=== PATIENT | male | born 1965 | race Hispanic/Latino ===

== ENCOUNTER 2018-04-28 22:58 | Emergency (ER) | payer OTHER ==
[~2018-04-28] VITALS: Ht 170.2 cm; Wt 73.5 kg
[~2018-04-28 22:58] MED LIST: CIPRO500 MG PO; METRONIDAZOLE500 MG PO; NO MEDS
[2018-04-28] MEDS ORDERED: HYDROCODONE/APAP 10MG-325MG TAB PO ONE (23:15)
--- NOTE | 2018-04-28 23:54 | Diagnostic Imaging Report ---
SHOULDER LEFT COMPLETE HISTORY: Injury, pain. COMPARISON: None available. FINDINGS: Bones: No acute displaced fracture. Punctate calcification adjacent to the greater tuberosity, likely rotator cuff calcific tendinosis. Adequate internal and external rotation. Osseous alignment is within normal limits. Joints: Moderate degenerative changes of the acromioclavicular joint. Soft tissues: The soft tissues appear unremarkable. IMPRESSION: No acute radiographic abnormality. Signed by: DR. Elpidio Yang MD on 04/28/2018 11:50 PM
[2018-04-29] MEDS ORDERED: KETOROLAC TROMETHAMINE 60 MG/2 ML VIAL IM ONE (01:00)
[2018-04-29 01:28] VITALS: BP 135/81
== END 2018-04-29 01:43 | disposition home or self-care (01) ==
LOC: ER 22:58
DX: M25.512 Pain in left shoulder (principal); X50.1XXA Overexertion from prolonged static or awkward postures, initial encounter
CPT/HCPCS: 73030; 96372; 99283; J1885

== ENCOUNTER 2019-08-20 20:04 | Emergency (ER) | payer OTHER ==
[~2019-08-20] VITALS: Ht 170.2 cm; Wt 65.8 kg
--- OUTSIDE RECORDS SUMMARY | 2019-08-20 20:08 | XMS REPORT | Continuity of Care Document ---
Author Author [facility] t Organization [facility] Address 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 Medications Ordered Medication Name Filled Medication Name Start Date Stop Da te Current Medication? Ordering Clinician Indication Dosage Frequency Signature (SIG) Comments Components Source Ciprofloxacin Hcl (Cipro) 500 Mg Tablet Ciprofloxacin Hcl (C ipro) 500 Mg Tablet Yes 500 Every 12 Hours [facility] Ciprofloxacin Hcl (Cipro) 500 Mg Tablet Ciprofloxacin Hcl (C ipro) 500 Mg Tablet Yes 500 Every 12 Hours [facility] Metronidazole 500 Mg Tablet Metronidazole 500 Mg Tablet Yes 500 Three Times A Day [facility] Procedures This patient has no known procedures. Encounters Start Date/Time End Date/Time Encounter Type Admission Type [facility] Care Department Encounter ID Source 2018-04-28 22:58:00 2018-04-29 01:43:00 Departed Emergency Room 1 MARIA INES JOHN [facility] [id number] [facility] Results Test Description Test Time Test Comments Results Result Comments Source SHOULDER LEFT COMPLETE 2018-04-28 23:49:00 [facility] [address] [place], [place] [address] Patient Name: OANH MINER MR #: [id number] : 1965 Age/Sex: 52/M Req #: [id number] Adm Physician: Ordered by: MARIA INES JOHN MD Report #: [id number] Location: ER Room/Bed: Procedure: [id number] DX/SHOULDER LEFT COMPLETE Exam Date: 04/28/18 Exam Time: 2327 REPORT STATUS: Signed SHOULDER LEFT COMPLETE HISTORY: Injury, pain. COMPARISON: None available. FINDINGS: Bones: No acute displaced fracture. Punctate calcification adjacent to the greater tuberosity, likely rotator cuff calcific tendinosis. Adequate internal and external rotation. Osseous alignment is within normal limits. Joints: Moderate degenerative changes of the acromioclavicular joint. Soft tissues: The soft tissues appear unremarkable. IMPRESSION: No acute radiographic abnormality. Signed by: DR. Elpidio Red MD on 04/28/2018 11:50 PM Dictated By: ELPIDIO RED MD [id number] Transcribed By: KAROLINA on 04/28/18 0561 COPY TO: MARIA INES JOHN MD
[2019-08-20] MEDS ORDERED: KETOROLAC TROMETHAMINE 30 MG/ML VIAL IV STA (20:29)
[2019-08-20] MEDS ORDERED: ASPIRIN 81 MG CHEW TAB PO ONE (20:30)
--- NOTE | 2019-08-20 20:46 | Emergency Department Note ---
History of Present Illnes History of Present Illness Chief Complaint: Chest Pain History of Present Illness This is a 54 year old male presents with complaint of left-sided chest pain for the past 3 days that has been constant nature. States pain is worse with movement and breathing. Patient denies injury. Patient denies fever and cough. . Historian: Patient Arrival Mode: Car Onset (how long ago): day(s) (3) Location: left chest Quality: pain, aching Radiation: non-radiation Severity: severe Onset quality: sudden Duration (how long): day(s) (3) Timing of current episode: constant Progression: unchanged Chronicity: new Relieving factors: none Exacerbating factors: movement, other (inspiration) Associated symptoms: denies other symptoms Treatments prior to arrival: none Past Medical/Family History Physician Review I have reviewed the patient's past medical and family history. Any updates have been documented here. Past Medical History Recent Fever: No Clinical Suspicion of Infectio: No New/Unexplained Change in Ment: No Past Medical History: None Past Surgical History: Cholecysctectomy Other Surgery: LEFT ARM AND LEGS BILATERAL Social History Smoking Cessation: Current some day smoker Counseling Performed: No Alcohol Use: None Any Illegal Drug Use: No TB Exposure/Symptoms: No Physically hurt or threatened: No Family History Family history of heart diseas: No Other family history htn Other Last Tetanus: UTD Any Pre-Existing Lines (PICC,: No Is patient up to date on immun: No Last Flu: utd Last Pneumovax: na Review of Systems Review of Systems Constitutional: no symptoms EENTM: no symptoms Cardiovascular: as per HPI Respiratory: no symptoms Gastrointestinal: no symptoms Genitourinary: no symptoms Musculoskeletal: as per HPI Neurological: no symptoms Psychological: no symptoms Endocrine: no symptoms Hematological/Lymphatic: no symptoms Review of other systems All other systems reviewed and negative. Physical Exam Related Data Allergies: Coded Allergies: No Known Allergies (Verified , 08/14/14) Triage Vital Signs Vital Signs Date Time Temp Pulse Resp B/P (MAP) Pulse Ox O2 Delivery O2 Flow Rate FiO2 08/20/19 20:04 98.0 106 22 178/87 100 Vital signs reviewed: Yes Physical Exam CONSTITUTIONAL Constitutional: well-developed, well-nourished HENT HENT: normocephalic, atraumatic, oropharynx clear/moist, nose normal HENT L/R: left ext ear normal, right ext ear normal EYES Eyes: PERRL, conjunctivae normal NECK Neck: ROM normal PULMONARY Pulmonary: effort normal, breath sounds normal CARDIOVASCULAR Cardiovascular: regular rhythm, heart sounds normal, capillary refill normal, normal rate GASTROINTESTINAL Abdominal: soft, nontender, bowel sounds normal GENITOURINARY Genitourinary: exam deferred SKIN Skin: warm, dry MUSCULOSKELETAL Musculoskeletal: ROM normal, other (left anterior and lateral chest wall tender to palpation) NEUROLOGICAL Neurological: alert, oriented x 3, no gross motor or sensory deficits PSYCHOLOGICAL Psychological: mood/affect normal, judgement normal Results Laboratory Laboratory Laboratory Tests Test 08/20/19 20:21 White Blood Count 6.01 x10e3/uL (4.8-10.8) Red Blood Count 4.53 x10e6/uL (4.3-5.7) Hemoglobin 12.1 g/dL (14.0-18.0) Hematocrit 36.8 % (38.2-49.6) Mean Corpuscular Volume 81.2 fL (81-99) Mean Corpuscular Hemoglobin 26.7 pg (28-32) Mean Corpuscular Hemoglobin Concent 32.9 g/dL (31-35) Red Cell Distribution Width 14.5 % (11.7-14.4) Platelet Count 190 x10e3/uL (140-360) Neutrophils (%) (Auto) 50.0 % (38.7-80.0) Lymphocytes (%) (Auto) 33.3 % (18.0-39.1) Monocytes (%) (Auto) 12.5 % (4.4-11.3) Eosinophils (%) (Auto) 3.7 % (0.0-6.0) Basophils (%) (Auto) 0.2 % (0.0-1.0) Neutrophils # (Auto) 3.0 (2.1-6.9) Lymphocytes # (Auto) 2.0 (1.0-3.2) Monocytes # (Auto) 0.8 (0.2-0.8) Eosinophils # (Auto) 0.2 (0.0-0.4) Basophils # (Auto) 0.0 (0.0-0.1) Absolute Immature Granulocyte (auto 0.02 x10e3/uL (0-0.1) Prothrombin Time 14.9 seconds (11.9-14.5) Prothromb Time International Ratio 1.10 Activated Partial Thromboplast Time 31.9 seconds (23.8-35.5) D-Dimer Quantitative (PE/DVT) 413 ng/mL (0-400) Sodium Level 138 mmol/L (136-145) Potassium Level 3.8 mmol/L (3.5-5.1) Chloride Level 106 mmol/L (98-107) Carbon Dioxide Level 22 mmol/L (22-29) Anion Gap 13.8 mmol/L (8-16) Blood Urea Nitrogen 9 mg/dL (7-26) Creatinine 0.51 mg/dL (0.72-1.25) Estimat Glomerular Filtration Rate > 60 ML/MIN (60-) BUN/Creatinine Ratio 18 (6-25) Glucose Level 92 mg/dL (74-118) Calcium Level 9.1 mg/dL (8.4-10.2) Total Bilirubin 0.3 mg/dL (0.2-1.2) Aspartate Amino Transf (AST/SGOT) 23 IU/L (5-34) Alanine Aminotransferase (ALT/SGPT) 23 IU/L (0-55) Alkaline Phosphatase 187 IU/L (40-150) Creatine Kinase 30 IU/L (30-200) Creatine Kinase MB 1.40 ng/mL (0-5.0) Troponin I < 0.001 ng/mL (0-0.300) B-Type Natriuretic Peptide 129.6 pg/mL (0-100) Total Protein 7.1 g/dL (6.5-8.1) Albumin 3.2 g/dL (3.5-5.0) Globulin 3.9 g/dL (2.3-3.5) Albumin/Globulin Ratio 0.8 (0.8-2.0) Lab results reviewed: Yes Imaging Imaging results reviewed: Yes Impressions EXAMINATION: CHEST SINGLE (PORTABLE) COMPARISON: Chest x-ray 08/14/2014 INDICATION: ^chest pain ^[id number] ^2044 ^Y DISCUSSION: Frontal view of the chest obtained at 2004 hours. HEART AND MEDIASTINUM: The cardiomediastinal silhouette is unremarkable. LINES: None. LUNGS/PLEURA: The lungs are diffusely hyperinflated. No pneumonia or pulmonary edema. No pleural effusion or pneumothorax. Stable mild eventration of the right diaphragm. BONES AND SOFT TISSUES: No focal osseous lesion. The soft tissues are normal. IMPRESSION: Pulmonary hyperinflation suggestive of small airways disease. No infiltrates. Signed by: Dr. Heather Gutiérrez MD on 08/20/2019 9:[address] 1. No evidence for pulmonary embolus or aortic dissection.. 2. No pulmonary abnormalities. 3. Gynecomastia as described above. 4. Enlarged thyroid gland. Recommend further evaluation with thyroid ultrasound and thyroid function tests. Procedures 12 Lead ECG Interpretation Roll On Worker: Interpreted by ED physician Date: Aug 20, 2019 Time: 20:18 Rhythm: sinus tachycardia Rate: tachycardia BPM: 108 QRS axis: normal ST segments normal: Yes T waves normal: Yes Other findings: no other findings Clinical Impression: abnormal ECG (sinus tachycardia o/w normal) Critical Care Time Subsequent provider I assumed direction of critical care for this patient from another provider of my specialty. Assessment & Plan Assessment & Plan Final Impression: (1) Chest wall pain Assessment & Plan Patient with left-sided chest pain that is reproducible with movement and palpation and inspiration. CBC, CMP, cardiac enzymes, d-dimer, EKG, chest x-ray, ordered to eval for myocardial infarction, like slight abnormality, pneumonia, pulmonary embolus. Toradol 30 mg IV ordered. Patient has positive d-dimer CT chest PE protocol ordered. Patient's CT chest negative for pulmonary embolus and pneumonia. Patient will be discharged home on naproxen and Flexeril Depart Disposition: HOME, SELF-CARE Last Vital Signs Date Time Temp Pulse Resp B/P (MAP) Pulse Ox O2 Delivery O2 Flow Rate FiO2 08/20/19 20:31 110 22 176/77 100 08/20/19 20:04 98.0 Home Meds Reported Medications Metronidazole (METRONIDAZOLE) 500 Mg Tablet, 500 MG PO TID, #30 TAB 03/05/16 Ciprofloxacin Hcl (CIPRO) 500 Mg Tablet, 500 MG PO Q12H, #20 TAB 03/05/16 Ciprofloxacin Hcl (CIPRO) 500 Mg Tablet, 500 MG PO Q12H, #20 TAB 03/05/16 [No Meds] No Conflict Check 10/14/14 Medications in the ED Aspirin 81 mg PRN ONCE PO Last administered on 08/20/19at 20:32; Admin Dose 81 MG; Start 08/20/19 at 20:30; Stop 08/20/19 at 20:31; Status UNV Ketorolac Tromethamine 30 mg ONCE STAT IV ; Start 08/20/19 at 20:29; Stop 08/20/19 at 20:30; Status UNV JACKIE THOMAS MD Aug 20, 2019 20:46
[2019-08-20 20:49] LABS: BASOPHILS % 0.2 % (0.0-1.0); EOSINOPHILS # (AUTO) 0.2 (0.0-0.4); EOSINOPHILS % 3.7 % (0.0-6.0); HEMATOCRIT 36.8 % (38.2-49.6); HEMOGLOBIN 12.1 g/dL (14.0-18.0); LYMPHOCYTES % 33.3 % (18.0-39.1); MEAN CORPUSCULAR HEMOGLOBIN 26.7 pg (28-32); MEAN CORPUSCULAR HGB CONC 32.9 g/dL (31-35); MEAN CORPUSCULAR VOLUME 81.2 fL (81-99); MONOCYTES # (AUTO) 0.8 (0.2-0.8); MONOCYTES % 12.5 % (4.4-11.3); PLATELET COUNT 190 x10e3/uL (140-360); RED BLOOD COUNT 4.53 x10e6/uL (4.3-5.7); RED CELL DISTRIBUTION WIDTH 14.5 % (11.7-14.4)
[2019-08-20 20:52] LABS: INR 1.1; PARTIAL THROMBOPLASTIN TIME 31.9 seconds (23.8-35.5); PROTHROMBIN TIME 14.9 seconds (11.9-14.5)
[2019-08-20 21:01] LABS: ALANINE AMINOTRANSFERASE 23 IU/L (0-55); ALBUMIN 3.2 g/dL (3.5-5.0); ALBUMIN/GLOBULIN RATIO 0.8 (0.8-2.0); ALKALINE PHOSPHATASE 187 IU/L (40-150); ANION GAP 13.8 mmol/L (8-16); BLOOD UREA NITROGEN 9 mg/dL (7-26); BUN/CREATININE RATIO 18 (6-25); CALCIUM 9.1 mg/dL (8.4-10.2); CARBON DIOXIDE 22 mmol/L (22-29); CHLORIDE 106 mmol/L (98-107); CREATINE KINASE 30 IU/L (30-200); CREATININE, SERUM 0.51 mg/dL (0.72-1.25); EST GLOMERULAR FILTRATION RATE > 60 ML/MIN (60-); GLUCOSE 92 mg/dL (74-118); POTASSIUM 3.8 mmol/L (3.5-5.1); SODIUM 138 mmol/L (136-145)
--- NOTE | 2019-08-20 21:15 | Diagnostic Imaging Report ---
EXAMINATION: CHEST SINGLE (PORTABLE) COMPARISON: Chest x-ray 08/14/2014 INDICATION: ^chest pain ^[id number] ^2044 ^Y DISCUSSION: Frontal view of the chest obtained at 2004 hours. HEART AND MEDIASTINUM: The cardiomediastinal silhouette is unremarkable. LINES: None. LUNGS/PLEURA: The lungs are diffusely hyperinflated. No pneumonia or pulmonary edema. No pleural effusion or pneumothorax. Stable mild eventration of the right diaphragm. BONES AND SOFT TISSUES: No focal osseous lesion. The soft tissues are normal. IMPRESSION: Pulmonary hyperinflation suggestive of small airways disease. No infiltrates. Signed by: Dr. Heather Gutiérrez MD on 08/20/2019 9:12 PM
[2019-08-20] MEDS ORDERED: HYDROCODONE/APAP 7.5MG-325MG 1 EA TAB PO ONE (21:30)
[2019-08-20] MEDS ORDERED: SODIUM CHLORIDE 0.9% 50ML 50 ML ONE (21:55)
[2019-08-20] MEDS ORDERED: IOPAMIDOL 370 MG/ML 200 ML INFUS..BTL INJ ONE (21:55)
--- NOTE | 2019-08-20 23:15 | Diagnostic Imaging Report ---
CT chest pulmonary embolism protocol CPT code: 54625 INDICATION: Chest pain ^pe protocol ^Y TECHNIQUE: Thin collimation axial images obtained through the level of the pulmonary arteries with additional imaging through the chest following the uneventful administration of 100 cc of low osmolar, nonionic intravenous contrast. Images reconstructed into coronal and sagittal MIPs for complete evaluation of the tortuous and overlapping pulmonary vascular structures and to reduce patient radiation dose. RADIATION DOSE: Total DLP: 530.83 mGy*cm Estimated effective dose: (DLP x 0.015 x size factor) mSv CTDIvol has been reviewed. It is below the limits set by the Radiation Protocol Committee (RPC). Dose reduction techniques used: Automated exposure control, adjustment of the mAs and/or kVp according to patient size, standardized low-dose protocol, and/or iterative reconstruction technique. COMPARISON: CTA chest 09/25/2011. FINDINGS: Pulmonary artery: No filling defects are appreciated within the main, left, right, lobar or visualized segmental pulmonary arteries to suggest embolism. Aorta: The thoracic aorta is not aneurysmal. No evidence for dissection. Lymph nodes: No enlarged axillary or supraclavicular lymph nodes. A right hilar lymph node measures 8 mm. Increased number of lymph nodes in the AP window measure up to 7 mm. No enlarged subcarinal lymph nodes Thyroid: Diffusely enlarged. No discrete nodules. Mediastinum: The heart is normal in size. No pericardial effusion. The esophagus is normal. Lungs: Right Lung: Well-inflated and normal. No nodules Left Lung: Well-inflated and normal. No nodules. Pleura: No pleural effusion or pleural-based mass. Abdomen: Visualized portions are normal uric the gallbladder is absent. Bones: Mild degenerative changes of the spine. No focal osseous lesions. Soft tissues: Gynecomastia. Resolved right gynecomastia. IMPRESSION: 1. No evidence for pulmonary embolus or aortic dissection.. 2. No pulmonary abnormalities. 3. Gynecomastia as described above. 4. Enlarged thyroid gland. Recommend further evaluation with thyroid ultrasound and thyroid function tests. Signed by: Dr. Heather Gutiérrez MD on 08/20/2019 11:12 PM
[2019-08-20 23:23] VITALS: BP 151/61
== END 2019-08-20 23:37 | disposition home or self-care (01) ==
LOC: ER 20:04
DX: R07.89 Other chest pain (principal); F17.210 Nicotine dependence, cigarettes, uncomplicated
CPT/HCPCS: 36415; 71045; 71260; 80053; 82550; 82553; 83880; 84484; 85025; 85379; 85610; 85730; 99284; J1885; Q9967; 93005

== ENCOUNTER 2020-03-07 17:16 | Inpatient (IN) | payer OTHER ==
[~2020-03-07] VITALS: Ht 170.2 cm; Wt 65.8 kg
[2020-03-07] MEDS ORDERED: SODIUM CHLORIDE 0.9% 1000ML 1,000 ML IV SCH (17:45)
[2020-03-07] MEDS ORDERED: FAMOTIDINE 20 MG/2 ML VIAL IV STA (17:45)
[2020-03-07] MEDS ORDERED: ONDANSETRON HCL INJ 2MG/ML 2ML 2 MG/ML VIAL IV STA (17:45)
[2020-03-07 17:58] LABS: BASOPHILS % 0.3 % (0.0-1.0); EOSINOPHILS # (AUTO) 0.2 (0.0-0.4); EOSINOPHILS % 1.9 % (0.0-6.0); HEMATOCRIT 37.9 % (38.2-49.6); HEMOGLOBIN 12.4 g/dL (14.0-18.0); LYMPHOCYTES # (AUTO) 1.9 (1.0-3.2); MEAN CORPUSCULAR HEMOGLOBIN 26.4 pg (28-32); MEAN CORPUSCULAR HGB CONC 32.7 g/dL (31-35); MEAN CORPUSCULAR VOLUME 80.8 fL (81-99); MONOCYTES % 9.3 % (4.4-11.3); NEUTROPHILS % 69.2 % (38.7-80.0); PLATELET COUNT 197 x10e3/uL (140-360); RED BLOOD COUNT 4.69 x10e6/uL (4.3-5.7); RED CELL DISTRIBUTION WIDTH 14.4 % (11.7-14.4)
[2020-03-07] MEDS: MORPHINE SULFATE INJ 4 MG/ML INJ 1ML IV PRN (18:09)
[2020-03-07] MEDS ORDERED: SODIUM CHLORIDE 0.9% 50ML 50 ML ONE ×3 (18:15→19:33)
[2020-03-07 18:19] LABS: ALANINE AMINOTRANSFERASE 15 IU/L (0-55); ALBUMIN 3.5 g/dL (3.5-5.0); ALBUMIN/GLOBULIN RATIO 0.8 (0.8-2.0); ALKALINE PHOSPHATASE 190 IU/L (40-150); ANION GAP 15.8 mmol/L (8-16); BLOOD UREA NITROGEN 9 mg/dL (7-26); BUN/CREATININE RATIO 17 (6-25); CALCIUM 8.9 mg/dL (8.4-10.2); CARBON DIOXIDE 21 mmol/L (22-29); CHLORIDE 105 mmol/L (98-107); CREATINE KINASE 24 IU/L (30-200); CREATININE, SERUM 0.53 mg/dL (0.72-1.25); EST GLOMERULAR FILTRATION RATE > 60 ML/MIN (60-); GLUCOSE 114 mg/dL (74-118); POTASSIUM 3.8 mmol/L (3.5-5.1); SODIUM 138 mmol/L (136-145)
[2020-03-07] MEDS ORDERED: IOPAMIDOL 370 MG/ML 200 ML INFUS..BTL INJ ONE ×2 (18:56→19:34)
[2020-03-07 20:12] LABS: CLARITY,URINE CLEAR (CLEAR); COLOR,URINE YELLOW (YELLOW); KETONES,URINE NEGATIVE (NEGATIVE); LEUKOCYTE ESTERASE ,URINE TRACE (NEGATIVE); NITRITE,URINE NEGATIVE (NEGATIVE); PROTEIN,URINE DIPSTICK NEGATIVE (NEGATIVE); URINE UROBILINOGEN 0.2 mg/dL (0.2 - 1)
[2020-03-07 20:18] LABS: BACTERIA,URINE FEW /HPF; EPITHELIAL CELLS,URINE RARE /LPF; RBC,URINE 0-5 /HPF (0-5)
[2020-03-07] MEDS ORDERED: MORPHINE SULFATE INJ 2 MG/ML SYR IV STA (21:03)
[2020-03-07] MEDS ORDERED: MORPHINE SULFATE INJ 2 MG/ML SYR ONE (21:07)
[2020-03-07] MEDS ORDERED: ONDANSETRON HCL INJ 2MG/ML 2ML 2 MG/ML VIAL IV PRN (21:45)
[2020-03-07] MEDS ORDERED: HYDRALAZINE HCL 20 MG/ML VIAL IV PRN (22:45)
[2020-03-07] MEDS ORDERED: ACETAMINOPHEN 325 MG TAB PO PRN (22:45)
[2020-03-08] VITALS (9 sets, daily range): BP systolic 121–160; BP diastolic 55–80
[2020-03-08] MEDS: SODIUM CHLORIDE 0.9% 1000ML 1,000 ML IV SCH ×4 (00:53→19:59)
[2020-03-08] MEDS: PIPER-TAZ 3.375 GM 50 ML IV SCH ×6 (00:54→23:19)
[2020-03-08] MEDS: KETOROLAC TROMETHAMINE 30 MG/ML VIAL IV PRN ×3 (00:54→19:59)
[2020-03-08] MEDS: MORPHINE SULFATE INJ 4 MG/ML INJ 1ML IV PRN ×5 (03:22→21:23)
[2020-03-08 06:13] LABS: BASOPHILS % 0.2 % (0.0-1.0); EOSINOPHILS # (AUTO) 0.2 (0.0-0.4); EOSINOPHILS % 3.5 % (0.0-6.0); HEMATOCRIT 33.4 % (38.2-49.6); HEMOGLOBIN 10.7 g/dL (14.0-18.0); LYMPHOCYTES # (AUTO) 1.8 (1.0-3.2); LYMPHOCYTES % 29.1 % (18.0-39.1); MEAN CORPUSCULAR HEMOGLOBIN 26.6 pg (28-32); MEAN CORPUSCULAR VOLUME 83.1 fL (81-99); MONOCYTES # (AUTO) 0.8 (0.2-0.8); MONOCYTES % 11.9 % (4.4-11.3); NEUTROPHILS # (AUTO) 3.5 (2.1-6.9); PLATELET COUNT 165 x10e3/uL (140-360); RED BLOOD COUNT 4.02 x10e6/uL (4.3-5.7); RED CELL DISTRIBUTION WIDTH 14.4 % (11.7-14.4)
[2020-03-08 06:46] LABS: ALANINE AMINOTRANSFERASE 17 IU/L (0-55); ALBUMIN 2.8 g/dL (3.5-5.0); ALBUMIN/GLOBULIN RATIO 0.8 (0.8-2.0); ALKALINE PHOSPHATASE 149 IU/L (40-150); ANION GAP 11.8 mmol/L (8-16); BLOOD UREA NITROGEN 12 mg/dL (7-26); BUN/CREATININE RATIO 27 (6-25); CALCIUM 8.4 mg/dL (8.4-10.2); CARBON DIOXIDE 24 mmol/L (22-29); CHLORIDE 106 mmol/L (98-107); CREATININE, SERUM 0.45 mg/dL (0.72-1.25); EST GLOMERULAR FILTRATION RATE > 60 ML/MIN (60-); GLUCOSE 90 mg/dL (74-118); MAGNESIUM 1.7 MG/DL (1.3-2.1); POTASSIUM 3.8 mmol/L (3.5-5.1); SODIUM 138 mmol/L (136-145)
[2020-03-08] MEDS: FAMOTIDINE 20 MG/2 ML VIAL IV SCH ×2 (07:45→17:04)
[2020-03-09] VITALS (8 sets, daily range): BP systolic 136–159; BP diastolic 67–83
[2020-03-09] MEDS: MORPHINE SULFATE INJ 4 MG/ML INJ 1ML IV PRN ×5 (01:21→20:20)
[2020-03-09] MEDS: PIPER-TAZ 3.375 GM 50 ML IV SCH ×3 (05:10→18:03)
[2020-03-09] MEDS: SODIUM CHLORIDE 0.9% 1000ML 1,000 ML IV SCH ×3 (05:10→20:33)
[2020-03-09 06:10] LABS: BASOPHILS % 0.2 % (0.0-1.0); EOSINOPHILS # (AUTO) 0.3 (0.0-0.4); EOSINOPHILS % 6.4 % (0.0-6.0); HEMATOCRIT 31.7 % (38.2-49.6); HEMOGLOBIN 10.2 g/dL (14.0-18.0); LYMPHOCYTES # (AUTO) 1.4 (1.0-3.2); LYMPHOCYTES % 34.1 % (18.0-39.1); MEAN CORPUSCULAR HEMOGLOBIN 26.9 pg (28-32); MEAN CORPUSCULAR HGB CONC 32.2 g/dL (31-35); MEAN CORPUSCULAR VOLUME 83.6 fL (81-99); MONOCYTES # (AUTO) 0.5 (0.2-0.8); NEUTROPHILS % 48.3 % (38.7-80.0); PLATELET COUNT 134 x10e3/uL (140-360); RED BLOOD COUNT 3.79 x10e6/uL (4.3-5.7); RED CELL DISTRIBUTION WIDTH 14.6 % (11.7-14.4)
[2020-03-09 06:25] LABS: ANION GAP 10.9 mmol/L (8-16); BLOOD UREA NITROGEN 7 mg/dL (7-26); BUN/CREATININE RATIO 17 (6-25); CALCIUM 8.3 mg/dL (8.4-10.2); CARBON DIOXIDE 23 mmol/L (22-29); CHLORIDE 111 mmol/L (98-107); CREATININE, SERUM 0.41 mg/dL (0.72-1.25); EST GLOMERULAR FILTRATION RATE > 60 ML/MIN (60-); GLUCOSE 86 mg/dL (74-118); POTASSIUM 3.9 mmol/L (3.5-5.1); SODIUM 141 mmol/L (136-145)
[2020-03-09] MEDS: FAMOTIDINE 20 MG/2 ML VIAL IV SCH ×2 (09:22→17:34)
[2020-03-09] MEDS ORDERED: LORAZEPAM 0.5 MG TAB PO PRN (13:30)
[2020-03-10] VITALS: BP 137/94
[2020-03-10] MEDS: MORPHINE SULFATE INJ 4 MG/ML INJ 1ML IV PRN ×3 (00:17→09:00)
[2020-03-10 04:00] VITALS: BP 130/64
[2020-03-10] MEDS: SODIUM CHLORIDE 0.9% 1000ML 1,000 ML IV SCH (04:12)
[2020-03-10] MEDS: PIPER-TAZ 3.375 GM 50 ML IV SCH ×2 (05:45)
[2020-03-10 07:25] VITALS: BP 153/87
[2020-03-10 07:45] VITALS: BP 153/87
[2020-03-10] MEDS: FAMOTIDINE 20 MG/2 ML VIAL IV SCH (08:48)
[2020-03-10] MEDS ORDERED: BISACODYL 5 MG TAB EC PO PRN (10:30)
[2020-03-10] MEDS ORDERED: SENNA-S TABLET PO SCH (10:30)
[2020-03-10] MEDS ORDERED: MAGNESIUM HYDROXIDE 30 ML UDC PO PRN (10:30)
[2020-03-10] MEDS ORDERED: ALPRAZOLAM 0.25 MG TAB PO PRN (10:30)
[2020-03-10] MEDS ORDERED: METOPROLOL TARTRATE INJ 1 MG/ML VIAL IV PRN (10:30)
[2020-03-10] MEDS ORDERED: METOPROLOL TARTRATE 25 MG TAB PO SCH (10:30)
[2020-03-10] MEDS ORDERED: HYDROCODONE/APAP 10MG-325MG TAB PO PRN (10:30)
[2020-03-10 11:02] VITALS: BP 132/91
== END 2020-03-10 11:31 | disposition left against medical advice (07) | DRG 699 ==
LOC: ER 17:24 → ERHOLD 21:53 → MED/SURG3 03-08 00:14 → OBSVTOIN 03-08 10:08
PROVIDERS: ADMIT Internal Medicine; ATTEND Internal Medicine
DX: N32.1 Vesicointestinal fistula (principal); K57.32 Diverticulitis of large intestine without perforation or abscess without bleeding; N39.0 Urinary tract infection, site not specified; Z20.828 Contact with and (suspected) exposure to other viral communicable diseases; N50.0 Atrophy of testis; I48.0 Paroxysmal atrial fibrillation; R39.89 Other symptoms and signs involving the genitourinary system
CPT/HCPCS: 36415; 71045; 74177; 80048; 80053; 81001; 82550; 82553; 83690; 83735; 84484; 85025; 87086; 87186; 93005; 99284; G0378; J1885; J2270; J2405; J2543; J7030; Q9967; U0002

== ENCOUNTER 2020-08-07 20:47 | Inpatient (IN) | payer SELFPAY ==
[~2020-08-07] VITALS: Ht 170.2 cm; Wt 65.8 kg
[2020-08-07] MEDS ORDERED: DILTIAZEM HCL VIAL 5 ML ONE (21:30)
[2020-08-07] MEDS ORDERED: DILTIAZEM HCL 125 ML IV STA (21:30)
[2020-08-07 21:34] LABS: BASOPHILS % 0.4 % (0.0-1.0); EOSINOPHILS # (AUTO) 0.2 (0.0-0.4); EOSINOPHILS % 3.9 % (0.0-6.0); HEMATOCRIT 31.5 % (38.2-49.6); HEMOGLOBIN 10.1 g/dL (14.0-18.0); LYMPHOCYTES # (AUTO) 1.6 (1.0-3.2); LYMPHOCYTES % 29.1 % (18.0-39.1); MEAN CORPUSCULAR HEMOGLOBIN 27.3 pg (28-32); MEAN CORPUSCULAR HGB CONC 32.1 g/dL (31-35); MEAN CORPUSCULAR VOLUME 85.1 fL (81-99); MONOCYTES # (AUTO) 0.6 (0.2-0.8); MONOCYTES % 11.4 % (4.4-11.3); NEUTROPHILS # (AUTO) 3.1 (2.1-6.9); PLATELET COUNT 134 x10e3/uL (140-360); RED CELL DISTRIBUTION WIDTH 17.2 % (11.7-14.4)
[2020-08-07] MEDS ORDERED: SODIUM CHLORIDE 0.9% 100 ML ONE (21:47)
[2020-08-07] MEDS ORDERED: DILTIAZEM HCL IV 5MG/ML 25 ML VIAL ONE (21:48)
[2020-08-07 21:55] LABS: ALANINE AMINOTRANSFERASE 24 IU/L (0-55); ALBUMIN 3.1 g/dL (3.5-5.0); ALBUMIN/GLOBULIN RATIO 0.8 (0.8-2.0); ALKALINE PHOSPHATASE 214 IU/L (40-150); ANION GAP 12.9 mmol/L (8-16); BLOOD UREA NITROGEN 11 mg/dL (7-26); BUN/CREATININE RATIO 20 (6-25); CALCIUM 8.1 mg/dL (8.4-10.2); CARBON DIOXIDE 22 mmol/L (22-29); CHLORIDE 108 mmol/L (98-107); CREATINE KINASE 46 IU/L (30-200); CREATININE, SERUM 0.56 mg/dL (0.72-1.25); EST GLOMERULAR FILTRATION RATE > 60 ML/MIN (60-); GLUCOSE 110 mg/dL (74-118); POTASSIUM 3.9 mmol/L (3.5-5.1); SODIUM 139 mmol/L (136-145)
[2020-08-07] MEDS ORDERED: SODIUM CHLORIDE 0.9% 50ML 50 ML ONE (22:26)
[2020-08-07] MEDS ORDERED: IOPAMIDOL 370 MG/ML 200 ML INFUS..BTL INJ ONE (22:26)
[2020-08-07] MEDS ORDERED: FUROSEMIDE INJ 10 MG/ML 4 ML VIAL IV ONE (22:45)
[2020-08-07] MEDS ORDERED: ASPIRIN 81 MG CHEW TAB PO ONE (23:00)
[2020-08-07] MEDS ORDERED: AMIODARONE HCL 150MG 100 ML ONE (23:33)
[2020-08-07] MEDS ORDERED: AMIODARONE 900MG 500 ML IV ONE (23:33)
[2020-08-07] MEDS ORDERED: AMIODARONE HCL 150MG 100 ML IV ONE (23:45)
[2020-08-08] VITALS (30 sets, daily range): BP systolic 95–123; BP diastolic 66–99
[2020-08-08] MEDS ORDERED: VANCOMYCIN 1GM/NS 250 ML 250 ML IV ONE (00:30)
[2020-08-08] MEDS ORDERED: CEFEPIME HCL 1 GM VIAL IV SCH (00:30)
[2020-08-08] MEDS: CEFEPIME HCL 1GM 1 GM in SODIUM CHLORIDE 0.9% 50ML 50 ML IV SCH ×2 (01:45→13:13)
[2020-08-08] MEDS: SODIUM CHLORIDE 0.9% 1000ML 1,970 ML IV SCH ×2 (01:55→01:56)
[2020-08-08] MEDS: AMIODARONE 900MG 500 ML IV SCH (03:00)
[2020-08-08] MEDS ORDERED: AMIODARONE HCL 360MG 200 ML IV SCH ×2 (06:00)
[2020-08-08 06:25] LABS: BASOPHILS % 0.2 % (0.0-1.0); EOSINOPHILS # (AUTO) 0.1 (0.0-0.4); EOSINOPHILS % 2.2 % (0.0-6.0); HEMATOCRIT 28.6 % (38.2-49.6); HEMOGLOBIN 9.2 g/dL (14.0-18.0); LYMPHOCYTES # (AUTO) 1.3 (1.0-3.2); LYMPHOCYTES % 24.5 % (18.0-39.1); MEAN CORPUSCULAR HEMOGLOBIN 26.9 pg (28-32); MEAN CORPUSCULAR HGB CONC 32.2 g/dL (31-35); MEAN CORPUSCULAR VOLUME 83.6 fL (81-99); MONOCYTES # (AUTO) 0.8 (0.2-0.8); MONOCYTES % 14.6 % (4.4-11.3); NEUTROPHILS # (AUTO) 3.1 (2.1-6.9); NEUTROPHILS % 58.1 % (38.7-80.0); PLATELET COUNT 130 x10e3/uL (140-360); RED BLOOD COUNT 3.42 x10e6/uL (4.3-5.7); RED CELL DISTRIBUTION WIDTH 17.2 % (11.7-14.4)
[2020-08-08 06:42] LABS: CREATINE KINASE MB 0.7 ng/mL (0-5.0)
[2020-08-08 06:58] LABS: ALANINE AMINOTRANSFERASE 22 IU/L (0-55); ALBUMIN 2.8 g/dL (3.5-5.0); ALBUMIN/GLOBULIN RATIO 0.8 (0.8-2.0); ALKALINE PHOSPHATASE 189 IU/L (40-150); ANION GAP 13.5 mmol/L (8-16); BLOOD UREA NITROGEN 11 mg/dL (7-26); BUN/CREATININE RATIO 22 (6-25); CALCIUM 7.7 mg/dL (8.4-10.2); CARBON DIOXIDE 19 mmol/L (22-29); CHLORIDE 110 mmol/L (98-107); CREATININE, SERUM 0.49 mg/dL (0.72-1.25); EST GLOMERULAR FILTRATION RATE > 60 ML/MIN (60-); GLUCOSE 111 mg/dL (74-118); POTASSIUM 3.5 mmol/L (3.5-5.1); SODIUM 139 mmol/L (136-145)
[2020-08-08] MEDS: ONDANSETRON HCL INJ 2MG/ML 2ML 2 MG/ML VIAL IV PRN (08:30)
[2020-08-08] MEDS ORDERED: APIXABAN 5 MG TABLET PO SCH (09:00)
[2020-08-08] MEDS ORDERED: LORAZEPAM 0.5 MG TAB PO ONE ×2 (10:50→13:20)
[2020-08-08] MEDS ORDERED: DIGOXIN INJ 0.25 MG/ML 2 ML AMP IV ONE (12:45)
[2020-08-08 12:50] LABS: CREATINE KINASE MB 0.8 ng/mL (0-5.0)
[2020-08-08] MEDS: METOPROLOL TARTRATE 25 MG TAB PO SCH ×2 (13:36→17:18)
[2020-08-08 14:58] LABS: RBC,BODY FLUID 3000 cells/uL; WBC,BODY FLUID 684 cells/uL
[2020-08-08 14:59] LABS: BODY FLUID APPEARANCE SL.CLOUDY; BODY FLUID COLOR YELLOW
[2020-08-08 15:00] LABS: BODY FLUID TYPE PLEURAL
[2020-08-08 17:19] LABS: LYMPHOCYTES,BODY FLUID 13 %; MONO/MACROPHG,BODY FLUID 22 %; NEUTROPHILS,BODY FLUID 17 %
[2020-08-08 17:25] LABS: OTHER CELLS,BODY FLUID 48 %
[2020-08-08 20:35] LABS: CREATINE KINASE MB 0.7 ng/mL (0-5.0)
[2020-08-08] MEDS: ZOLPIDEM TARTRATE 5 MG TAB PO SCH (21:58)
[2020-08-09] VITALS (23 sets, daily range): BP systolic 98–133; BP diastolic 60–95
[2020-08-09] MEDS: METOPROLOL TARTRATE 25 MG TAB PO SCH ×4 (00:45→18:00)
[2020-08-09] MEDS: CEFEPIME HCL 1GM 1 GM in SODIUM CHLORIDE 0.9% 50ML 50 ML IV SCH ×2 (01:05→13:51)
[2020-08-09] MEDS: AMIODARONE 900MG 500 ML IV SCH (03:00)
[2020-08-09 04:49] LABS: BASOPHILS % 0.1 % (0.0-1.0); HEMATOCRIT 33.6 % (38.2-49.6); HEMOGLOBIN 10.7 g/dL (14.0-18.0); LYMPHOCYTES # (AUTO) 1.2 (1.0-3.2); LYMPHOCYTES % 12.6 % (18.0-39.1); MEAN CORPUSCULAR HGB CONC 31.8 g/dL (31-35); MEAN CORPUSCULAR VOLUME 84.6 fL (81-99); MONOCYTES # (AUTO) 1.3 (0.2-0.8); NEUTROPHILS # (AUTO) 7.3 (2.1-6.9); NEUTROPHILS % 73.6 % (38.7-80.0); PLATELET COUNT 140 x10e3/uL (140-360); RED BLOOD COUNT 3.97 x10e6/uL (4.3-5.7); RED CELL DISTRIBUTION WIDTH 17.2 % (11.7-14.4)
[2020-08-09 05:17] LABS: ANION GAP 19.7 mmol/L (8-16); BLOOD UREA NITROGEN 18 mg/dL (7-26); BUN/CREATININE RATIO 29 (6-25); CALCIUM 7.7 mg/dL (8.4-10.2); CARBON DIOXIDE 14 mmol/L (22-29); CHLORIDE 105 mmol/L (98-107); CREATININE, SERUM 0.62 mg/dL (0.72-1.25); EST GLOMERULAR FILTRATION RATE > 60 ML/MIN (60-); GLUCOSE 82 mg/dL (74-118); POTASSIUM 4.7 mmol/L (3.5-5.1); SODIUM 134 mmol/L (136-145)
[2020-08-09] MEDS ORDERED: DIGOXIN INJ 0.25 MG/ML 2 ML AMP IV ONE (10:00)
[2020-08-09] MEDS: AMIODARONE HCL 200 MG TAB PO SCH ×2 (10:31→17:01)
[2020-08-09] MEDS: APIXABAN 5 MG TABLET PO SCH (17:01)
[2020-08-09] MEDS: ZOLPIDEM TARTRATE 5 MG TAB PO SCH (21:54)
[2020-08-10] VITALS (8 sets, daily range): BP systolic 105–120; BP diastolic 53–91
[2020-08-10] MEDS ORDERED: SODIUM CHLORIDE 0.9% 250ML 250 ML ONE (00:45)
[2020-08-10] MEDS: CEFEPIME HCL 1GM 1 GM in SODIUM CHLORIDE 0.9% 50ML 50 ML IV SCH ×2 (00:56→13:38)
[2020-08-10] MEDS: APIXABAN 5 MG TABLET PO SCH ×2 (05:28→17:40)
[2020-08-10] MEDS: METOPROLOL TARTRATE 25 MG TAB PO SCH ×4 (05:34→17:37)
[2020-08-10] MEDS: AMIODARONE HCL 200 MG TAB PO SCH ×2 (09:29→17:40)
[2020-08-10] MEDS: ONDANSETRON HCL INJ 2MG/ML 2ML 2 MG/ML VIAL IV PRN (11:39)
[2020-08-10] MEDS: ZOLPIDEM TARTRATE 5 MG TAB PO SCH (21:09)
[2020-08-11] VITALS: BP 111/69
[2020-08-11] MEDS: METOPROLOL TARTRATE 25 MG TAB PO SCH ×4 (00:08→17:03)
[2020-08-11] MEDS: CEFEPIME HCL 1GM 1 GM in SODIUM CHLORIDE 0.9% 50ML 50 ML IV SCH ×2 (01:00→12:12)
[2020-08-11 04:00] VITALS: BP 111/64
[2020-08-11] MEDS: APIXABAN 5 MG TABLET PO SCH ×2 (04:57→17:03)
[2020-08-11 05:33] LABS: ANION GAP 10.7 mmol/L (8-16); BLOOD UREA NITROGEN 18 mg/dL (7-26); BUN/CREATININE RATIO 39 (6-25); CALCIUM 7.2 mg/dL (8.4-10.2); CARBON DIOXIDE 19 mmol/L (22-29); CHLORIDE 110 mmol/L (98-107); CREATININE, SERUM 0.46 mg/dL (0.72-1.25); EST GLOMERULAR FILTRATION RATE > 60 ML/MIN (60-); GLUCOSE 100 mg/dL (74-118); POTASSIUM 3.7 mmol/L (3.5-5.1); SODIUM 136 mmol/L (136-145)
[2020-08-11 05:49] LABS: MAGNESIUM 1.9 MG/DL (1.3-2.1); PHOSPHORUS 1.9 MG/DL (2.3-4.7)
[2020-08-11] MEDS: FAMOTIDINE 20 MG TAB PO SCH ×2 (07:39→17:03)
[2020-08-11 08:13] VITALS: BP 102/62
[2020-08-11 08:15] VITALS: BP 102/62
[2020-08-11] MEDS: AMIODARONE HCL 200 MG TAB PO SCH ×2 (08:28→17:03)
[2020-08-11 12:47] VITALS: BP 111/70
[2020-08-11] MEDS: FUROSEMIDE INJ 10 MG/ML 4 ML VIAL IV SCH ×2 (13:51→17:03)
[2020-08-11 15:57] LABS: BILIRUBIN,DIRECT 1.7 mg/dL (0.0-0.5)
[2020-08-11 16:52] LABS: ALBUMIN 2.7 g/dL (3.5-5.0)
[2020-08-11 16:59] VITALS: BP 98/67
[2020-08-11] MEDS ORDERED: AMIODARONE HCL200 MG PO (17:22)
[2020-08-11] MEDS ORDERED: LASIX40 MG PO (17:22)
[2020-08-11] MEDS ORDERED: LOPRESSOR25 MG PO (17:22)
[2020-08-11] MEDS ORDERED: ELIQUIS5 MG PO (17:22)
== END 2020-08-11 18:20 | disposition home or self-care (01) | DRG 308 ==
LOC: ER 21:02 → ERHOLD 23:01 → ICU 08-08 00:14 → MED/SURG 08-09 23:20
PROVIDERS: ADMIT Internal Medicine; ATTEND Internal Medicine
PROC: 0W993ZZ Drainage of Right Pleural Cavity, Percutaneous Approach (ICD-10-PCS; principal; 2020-08-08)
DX: I48.91 Unspecified atrial fibrillation (principal); I50.23 Acute on chronic systolic (congestive) heart failure; J90 Pleural effusion, not elsewhere classified; R64 Cachexia; N32.1 Vesicointestinal fistula; D69.6 Thrombocytopenia, unspecified; R59.1 Generalized enlarged lymph nodes; Z90.49 Acquired absence of other specified parts of digestive tract; Z87.891 Personal history of nicotine dependence; E88.09 Other disorders of plasma-protein metabolism, not elsewhere classified; R63.4 Abnormal weight loss; Z20.822 Contact with and (suspected) exposure to COVID-19; R74.02 Elevation of levels of lactic acid dehydrogenase [LDH]; Z68.22 Body mass index [BMI] 22.0-22.9, adult
CPT/HCPCS: 32555; 36415; 71045; 71260; 74177; 80048; 80053; 80076; 82550; 82553; 83605; 83615; 83690; 83735; 83880; 84100; 84157; 84484; 85025; 87040; 87070; 87205; 89051; 93005; 93306; 99284; J0692; J1160; J1940; J2405; J3370; J7030; J7050; Q9967; U0002

== ENCOUNTER 2020-10-24 18:09 | Inpatient (IN) | payer SELFPAY ==
[~2020-10-24] VITALS: Ht 170.2 cm; Wt 65.8 kg
[~2020-10-24 18:09] MED LIST changes: +AMIODARONE HCL200 MG PO; +ELIQUIS5 MG PO; +LASIX40 MG PO; +LOPRESSOR25 MG PO
[2020-10-24] MEDS: IBUPROFEN 800MG/ 200ML 200 ML IV PRN ×2 (18:15→18:20)
[2020-10-24] MEDS: SODIUM CHLORIDE 0.9% 1000ML 1,000 ML IV SCH (18:15)
[2020-10-24] MEDS ORDERED: ADENOSINE 6MG/2ML 3 ML ONE (18:25)
[2020-10-24] MEDS ORDERED: DILTIAZEM HCL VIAL 5 ML ONE (18:28)
[2020-10-24] MEDS ORDERED: IBUPROFEN 800MG/ 200ML 200 ML IV ONE (18:28)
[2020-10-24] MEDS ORDERED: SODIUM CHLORIDE 0.9% 1000ML 2,000 ML ONE (18:28)
[2020-10-24] MEDS ORDERED: DILTIAZEM HCL 5 MG/ML 5 ML VIAL IV STA (18:30)
[2020-10-24 18:37] LABS: EOSINOPHILS % 0.3 % (0.0-6.0); HEMATOCRIT 29.3 % (38.2-49.6); HEMOGLOBIN 9.3 g/dL (14.0-18.0); LYMPHOCYTES # (AUTO) 0.7 (1.0-3.2); LYMPHOCYTES % 19.4 % (18.0-39.1); MEAN CORPUSCULAR HEMOGLOBIN 27.8 pg (28-32); MEAN CORPUSCULAR HGB CONC 31.7 g/dL (31-35); MEAN CORPUSCULAR VOLUME 87.5 fL (81-99); MONOCYTES # (AUTO) 0.5 (0.2-0.8); NEUTROPHILS # (AUTO) 2.3 (2.1-6.9); PLATELET COUNT 98 x10e3/uL (140-360); RED BLOOD COUNT 3.35 x10e6/uL (4.3-5.7); RED CELL DISTRIBUTION WIDTH 17.6 % (11.7-14.4)
[2020-10-24] MEDS ORDERED: METOPROLOL TARTRATE INJ 1 MG/ML VIAL ONE (18:38)
[2020-10-24] MEDS ORDERED: ACETAMINOPHEN 325 MG TAB ONE (18:38)
[2020-10-24] MEDS ORDERED: ACETAMINOPHEN 325 MG TAB PO ONE (18:45)
[2020-10-24] MEDS ORDERED: METOPROLOL TARTRATE INJ 1 MG/ML VIAL IV ONE ×2 (18:45→21:15)
[2020-10-24 18:58] LABS: INR 2.39; PROTHROMBIN TIME 26.5 seconds (11.9-14.5)
[2020-10-24 19:08] LABS: ALBUMIN 2.7 g/dL (3.5-5.0); ALBUMIN/GLOBULIN RATIO 0.6 (0.8-2.0); ANION GAP 16.5 mmol/L (8-16); CALCIUM 7.1 mg/dL (8.4-10.2); CREATININE, SERUM 0.62 mg/dL (0.72-1.25); POTASSIUM 3.5 mmol/L (3.5-5.1)
[2020-10-24] MEDS: METOPROLOL TARTRATE 25 MG TAB PO SCH (19:15)
[2020-10-24] MEDS ORDERED: Vancomycin IV 1 GM in SODIUM CHLORIDE 0.9% 250ML 250 ML IV ONE (19:30)
[2020-10-24] MEDS ORDERED: LIDOCAINE/PRILOCAINE 2.5-2.5% KIT ONE (19:30)
[2020-10-24] MEDS ORDERED: SODIUM CHLORIDE 0.9% 250ML 250 ML ONE (19:49)
[2020-10-24] MEDS ORDERED: DEXAMETHASONE SOD PHOS 10 MG/1 ML VIAL IV ONE (20:00)
[2020-10-24] MEDS ORDERED: FENTANYL CITRATE/PF 100MCG/2 ML INJ IV ONE (20:00)
[2020-10-24] MEDS ORDERED: FENTANYL CITRATE/PF 100MCG/2 ML INJ ONE (20:11)
[2020-10-24] MEDS: CEFEPIME 1 GM in SODIUM CHLORIDE 0.9% 50ML 50 ML IV SCH (21:00)
[2020-10-24] MEDS ORDERED: IOPAMIDOL 370 MG/ML 200 ML INFUS..BTL INJ ONE (21:02)
[2020-10-24] MEDS ORDERED: SODIUM CHLORIDE 0.9% 50ML 50 ML ONE (21:02)
[2020-10-24] MEDS ORDERED: LACTATED RINGER'S 500 ML IV ONE (21:15)
[2020-10-24] MEDS ORDERED: LACTATED RINGER'S 1,000 ML ONE (21:27)
[2020-10-24] MEDS ORDERED: CASIRIVIMAB/IMDEVIMAB 10 ML in SODIUM CHLORIDE 0.9% 100 ML IV ONE (21:30)
[2020-10-24] MEDS: ONDANSETRON HCL INJ 2MG/ML 2ML 2 MG/ML VIAL IV PRN (21:48)
[2020-10-24] MEDS ORDERED: LACTATED RINGER'S 500 ML INJ ONE (22:00)
[2020-10-25 00:51] LABS: CLARITY,URINE CLEAR (CLEAR); COLOR,URINE YELLOW (YELLOW); KETONES,URINE NEGATIVE (NEGATIVE); LEUKOCYTE ESTERASE ,URINE NEGATIVE (NEGATIVE); NITRITE,URINE NEGATIVE (NEGATIVE); URINE UROBILINOGEN 0.2 mg/dL (0.2 - 1)
[2020-10-25 00:52] LABS: PROTEIN,URINE DIPSTICK 2+ (NEGATIVE)
[2020-10-25 01:02] LABS: WBC,URINE (MAN) 21-50 /HPF (0-5)
[2020-10-25 01:03] LABS: BACTERIA,URINE MANY /HPF; EPITHELIAL CELLS,URINE FEW /LPF
[2020-10-25] MEDS: METOPROLOL TARTRATE 25 MG TAB PO SCH ×3 (02:37→07:48)
[2020-10-25] MEDS: SODIUM CHLORIDE 0.9% 1000ML 1,000 ML IV SCH (04:30)
[2020-10-25] MEDS ORDERED: FENTANYL CITRATE/PF 100MCG/2 ML INJ IV PRN (04:45)
[2020-10-25 06:53] LABS: HEMATOCRIT 30.8 % (38.2-49.6); HEMOGLOBIN 9.9 g/dL (14.0-18.0); LYMPHOCYTES # (AUTO) 0.4 (1.0-3.2); LYMPHOCYTES % 15.9 % (18.0-39.1); MEAN CORPUSCULAR HEMOGLOBIN 27.7 pg (28-32); MEAN CORPUSCULAR HGB CONC 32.1 g/dL (31-35); MEAN CORPUSCULAR VOLUME 86.3 fL (81-99); MONOCYTES # (AUTO) 0.1 (0.2-0.8); MONOCYTES % 5.2 % (4.4-11.3); NEUTROPHILS % 78.5 % (38.7-80.0); PLATELET COUNT 87 x10e3/uL (140-360); RED BLOOD COUNT 3.57 x10e6/uL (4.3-5.7); RED CELL DISTRIBUTION WIDTH 17.7 % (11.7-14.4)
[2020-10-25 07:11] LABS: ANION GAP 18.8 mmol/L (8-16); CREATININE, SERUM 0.55 mg/dL (0.72-1.25); POTASSIUM 3.8 mmol/L (3.5-5.1)
[2020-10-25 07:47] LABS: BAND NEUTROPHILS % (MANUAL) 1 %; LYMPHOCYTES % (MANUAL) 2 % (19-48); MONOCYTES % (MANUAL) 7 % (3.4-9.0); NEUTROPHILS % (MANUAL) 90 % (40-74)
[2020-10-25 07:48] LABS: ANISOCYTOSIS SLIGHT; HYPOCHROMASIA SLIGHT; PLATELET ESTIMATE MODERATELY DECREASED; PLATELET MORPHOLOGY COMMENT NORMAL; RBC MORPHOLOGY COMMENT NORMAL
[2020-10-25] MEDS: CEFEPIME 1 GM in SODIUM CHLORIDE 0.9% 50ML 50 ML IV SCH (07:48)
[2020-10-25] MEDS: LACTATED RINGER'S 1,000 ML INJ SCH (09:42)
[2020-10-25] MEDS: Vancomycin IV 1 GM in SODIUM CHLORIDE 0.9% 250ML 250 ML IV ONE ×2 (09:42→09:49)
[2020-10-25] MEDS: AMIODARONE HCL 200 MG TAB PO SCH ×3 (09:42→18:15)
[2020-10-25] MEDS ORDERED: DOCUSATE SODIUM 100 MG CAP PO PRN (09:45)
[2020-10-25] MEDS: ONDANSETRON HCL INJ 2MG/ML 2ML 2 MG/ML VIAL IV PRN ×2 (10:10→15:09)
[2020-10-25] MEDS: MORPHINE SULFATE INJ 4 MG/ML INJ 1ML IV PRN ×2 (10:10→15:08)
[2020-10-25] MEDS ORDERED: REMDESIVIR 200MG/NS 100ML 200 MG IV ONE (15:00)
[2020-10-25] MEDS: DEXAMETHASONE SOD PHOS 10 MG/1 ML VIAL IV SCH (15:09)
[2020-10-25] MEDS: CEFTRIAXONE 2 GM in SODIUM CHLORIDE 0.9% 100 ML IV SCH (15:09)
[2020-10-25] MEDS: ASCORBIC ACID 500 MG TAB PO SCH (18:15)
[2020-10-25] MEDS: ENOXAPARIN 30 MG/0.3 ML SYR SC SCH (18:15)
[2020-10-26] MEDS ORDERED: METOPROLOL TARTRATE INJ 1 MG/ML VIAL IV ONE (01:15)
[2020-10-26] MEDS: LACTATED RINGER'S 1,000 ML INJ SCH ×2 (02:37→12:02)
[2020-10-26] MEDS: METOPROLOL TARTRATE 25 MG TAB PO SCH ×4 (05:56→18:08)
[2020-10-26 06:18] LABS: BASOPHILS % 0.1 % (0.0-1.0); HEMATOCRIT 31.9 % (38.2-49.6); LYMPHOCYTES # (AUTO) 0.9 (1.0-3.2); LYMPHOCYTES % 9.2 % (18.0-39.1); MEAN CORPUSCULAR HEMOGLOBIN 27.9 pg (28-32); MEAN CORPUSCULAR HGB CONC 31.3 g/dL (31-35); MEAN CORPUSCULAR VOLUME 88.9 fL (81-99); MONOCYTES # (AUTO) 0.5 (0.2-0.8); NEUTROPHILS # (AUTO) 8.6 (2.1-6.9); NEUTROPHILS % 85.4 % (38.7-80.0); PLATELET COUNT 86 x10e3/uL (140-360); RED BLOOD COUNT 3.59 x10e6/uL (4.3-5.7); RED CELL DISTRIBUTION WIDTH 17.7 % (11.7-14.4)
[2020-10-26 06:52] LABS: ALBUMIN 2.4 g/dL (3.5-5.0); ALBUMIN/GLOBULIN RATIO 0.5 (0.8-2.0); ANION GAP 14.6 mmol/L (8-16); CALCIUM 7.1 mg/dL (8.4-10.2); CREATININE, SERUM 0.7 mg/dL (0.72-1.25); POTASSIUM 3.6 mmol/L (3.5-5.1)
[2020-10-26] MEDS ORDERED: PROMETHAZINE 12.5MG/ NACL 0.9% 12.5 MG/50 ML BAG IV PRN (07:00)
[2020-10-26] MEDS: SENNOSIDES 8.6 MG TAB PO SCH (09:00)
[2020-10-26] MEDS: ZINC SULFATE 50 MG CAP PO SCH (09:36)
[2020-10-26] MEDS: ASCORBIC ACID 500 MG TAB PO SCH ×2 (09:36→18:08)
[2020-10-26] MEDS: AMIODARONE HCL 200 MG TAB PO SCH ×2 (09:36→18:08)
[2020-10-26] MEDS: ENOXAPARIN 30 MG/0.3 ML SYR SC SCH ×2 (09:36→18:08)
[2020-10-26] MEDS: DEXAMETHASONE SOD PHOS 10 MG/1 ML VIAL IV SCH ×2 (09:36→13:34)
[2020-10-26] MEDS ORDERED: LORAZEPAM INJ 2 MG/ML VIAL IV ONE ×2 (12:45)
[2020-10-26] MEDS ORDERED: SODIUM CHLORIDE 0.9% 100 ML ONE (13:39)
[2020-10-26] MEDS ORDERED: REMDESIVIR 100MG/NS 100ML 100 MG IV SCH (14:00)
[2020-10-26] MEDS ORDERED: SODIUM CHLORIDE 0.9% 50ML 50 ML ONE (14:03)
[2020-10-26] MEDS ORDERED: GADOBENATE DIMEGLUMINE 1 ML IV ONE (14:04)
[2020-10-26] MEDS: ONDANSETRON HCL INJ 2MG/ML 2ML 2 MG/ML VIAL IV PRN ×2 (15:47→15:57)
[2020-10-26] MEDS: LACTULOSE SYRUP 20 GM/30 ML UDC PO SCH (23:45)
[2020-10-27] MEDS: LACTATED RINGER'S 1,000 ML INJ SCH (00:15)
[2020-10-27] MEDS ORDERED: METOPROLOL TARTRATE INJ 1 MG/ML VIAL IV ONE (01:45)
[2020-10-27] MEDS ORDERED: THIAMINE HCL INJ 100 MG/ML 2ML VIAL IV ONE (03:45)
[2020-10-27 03:47] LABS: % IRON SATURATION 17 % (15-50); IRON 25 ug/dL (65-175); TOTAL IRON BINDING CAPACITY 147 ug/dL (261-478); TRANSFERRIN 105 mg/dL (174-364)
[2020-10-27] MEDS ORDERED: MULTIVITAMINS- 12 INJECTION 10 ML, FOLIC ACID MDV 5 MG, THIAMINE HCL INJ 100 MG in SODI... IV ONE (04:30)
[2020-10-27] MEDS: METOPROLOL TARTRATE 25 MG TAB PO SCH ×3 (06:00→09:05)
[2020-10-27 06:17] LABS: BASOPHILS % 0.1 % (0.0-1.0); HEMOGLOBIN 9.9 g/dL (14.0-18.0); LYMPHOCYTES # (AUTO) 0.8 (1.0-3.2); LYMPHOCYTES % 5.8 % (18.0-39.1); MEAN CORPUSCULAR HEMOGLOBIN 27.7 pg (28-32); MEAN CORPUSCULAR HGB CONC 31.9 g/dL (31-35); MEAN CORPUSCULAR VOLUME 86.8 fL (81-99); MONOCYTES # (AUTO) 0.6 (0.2-0.8); MONOCYTES % 4.5 % (4.4-11.3); NEUTROPHILS # (AUTO) 11.9 (2.1-6.9); NEUTROPHILS % 88.9 % (38.7-80.0); PLATELET COUNT 70 x10e3/uL (140-360); RED BLOOD COUNT 3.57 x10e6/uL (4.3-5.7)
[2020-10-27 06:59] LABS: ALBUMIN 2.7 g/dL (3.5-5.0); ALBUMIN/GLOBULIN RATIO 0.6 (0.8-2.0); ANION GAP 19.4 mmol/L (8-16); CREATININE, SERUM 0.84 mg/dL (0.72-1.25); POTASSIUM 4.4 mmol/L (3.5-5.1)
[2020-10-27] MEDS: ENOXAPARIN 30 MG/0.3 ML SYR SC SCH (07:59)
[2020-10-27] MEDS: ZINC SULFATE 50 MG CAP PO SCH (07:59)
[2020-10-27] MEDS: SENNOSIDES 8.6 MG TAB PO SCH (07:59)
[2020-10-27] MEDS: ASCORBIC ACID 500 MG TAB PO SCH (07:59)
[2020-10-27] MEDS: AMIODARONE HCL 200 MG TAB PO SCH (07:59)
[2020-10-27] MEDS: LACTULOSE SYRUP 20 GM/30 ML UDC PO SCH (07:59)
[2020-10-27] MEDS: CEFTRIAXONE 2 GM in SODIUM CHLORIDE 0.9% 100 ML IV SCH (07:59)
[2020-10-27] MEDS ORDERED: SPIRONOLACTONE 25 MG TAB PO SCH (09:00)
[2020-10-27] MEDS ORDERED: FUROSEMIDE 40 MG TAB PO SCH (09:00)
[2020-10-27] MEDS ORDERED: THIAMINE HCL INJ 100 MG/ML 2ML VIAL IV SCH (09:00)
[2020-10-27] MEDS ORDERED: MIDODRINE 2.5 MG TAB PO SCH (12:00)
[2020-10-27 12:10] VITALS: BP 116/82
[2020-10-27] MEDS ORDERED: FUROSEMIDE INJ 10 MG/ML 2 ML VIAL IV SCH (14:00)
[2020-10-28] MEDS ORDERED: IRON SUCROSE 100 MG in SODIUM CHLORIDE 0.9% 100 ML 100 ML IV SCH (09:00)
== END 2020-10-27 12:08 | disposition left against medical advice (07) | DRG 177 ==
LOC: ER 18:20 → ERHOLD 21:29
PROVIDERS: ADMIT Internal Medicine; ATTEND Internal Medicine
PROC: XW043E5 Introduction of Remdesivir Anti-infective into Central Vein, Percutaneous Approach, New Technology Group 5 (ICD-10-PCS; principal; 2020-10-24)
PROC: 02HV33Z Insertion of Infusion Device into Superior Vena Cava, Percutaneous Approach (ICD-10-PCS; 2020-10-25)
DX: U07.1 COVID-19 (principal); J12.82 Pneumonia due to coronavirus disease 2019; I50.23 Acute on chronic systolic (congestive) heart failure; D61.818 Other pancytopenia; R18.8 Other ascites; N32.1 Vesicointestinal fistula; J90 Pleural effusion, not elsewhere classified; I11.0 Hypertensive heart disease with heart failure; E80.6 Other disorders of bilirubin metabolism; I25.10 Atherosclerotic heart disease of native coronary artery without angina pectoris; N30.90 Cystitis, unspecified without hematuria; D50.0 Iron deficiency anemia secondary to blood loss (chronic); D69.6 Thrombocytopenia, unspecified; K74.60 Unspecified cirrhosis of liver
CPT/HCPCS: 36415; 36569; 51700; 71045; 71260; 74177; 74183; 76700; 80048; 80053; 81001; 82140; 82607; 82746; 83540; 83605; 83690; 83880; 84436; 84443; 84466; 84479; 84484; 85025; 85045; 85610; 86039; 87040; 87086; 93005; 99284; J0153; J0456; J0692; J0696; J1100; J1650; J1756; J2270; J2405; J2550; J3010; J3370; J3411; J7030; J7050; J7120; J7121; Q9967; U0002